=== PATIENT | male | born 1965 | race Hispanic/Latino ===

== ENCOUNTER 2025-06-29 17:03 | Emergency (ER) | payer OTHER ==
[~2025-06-29] VITALS: Ht 170.2 cm; Wt 86.9 kg
[2025-06-29 19:30] VITALS: BP 145/85
== END 2025-06-29 19:30 | disposition home or self-care (01) ==
LOC: ED 17:03
DX: S01.01XA Laceration without foreign body of scalp, initial encounter (principal); V43.62XA Car passenger injured in collision with other type car in traffic accident, initial encounter
CPT/HCPCS: 12002; 36415; 70450; 72125; 99284-25; G0480